=== PATIENT | male | born 1995 ===

== ENCOUNTER 2016-11-15 09:46 | Emergency (ER) | payer OTHER ==
[2016-11-15 10:14] VITALS: PULSE 72; RESP 18; TEMP 98.2; O2SAT 100
[2016-11-15] MEDS ORDERED: Lidocaine 2% w Epi 1:100,000 Inj IJ ONE (10:15)
--- NOTE | 2016-11-15 10:19 | C.PDOC ---
History Of Present Illness 21 y/o male presents to the ED with complains of laceration to left hand. Pt states he was using circular saw to cut wood when the wood got stuck, the saw began slowed down with he tried to fix it and his hand got caught, causing laceration to left dorsum of hand. Pt denies weakness, numbness or any other complaints. Last tetanus 1 year ago. Time Seen by Provider: 11/15/16 10:06 Chief Complaint (Nursing): Abnormal Skin Integrity History Per: Patient History/Exam Limitations: no limitations Onset/Duration Of Symptoms: Hrs Current Symptoms Are (Timing): Still Present Location Of Injury: Left: Hand Severity: Moderate Recent travel outside of the [place]: No Past Medical History Reviewed: Historical Data, Nursing Documentation, Vital Signs Vital Signs: Last Vital Signs Temp 98.2 F 11/15/16 10:03 Pulse 72 11/15/16 10:03 Resp 18 11/15/16 11:04 BP 130/85 11/15/16 11:04 Pulse Ox 100 11/17/16 08:05 Family History: States: Unknown Family Hx - Social History Hx Alcohol Use: No Hx Substance Use: No - Immunization History Hx Tetanus Toxoid Vaccination: Yes (1-2 yrs ago) Hx Influenza Vaccination: No Hx Pneumococcal Vaccination: No Review Of Systems Except As Marked, All Systems Reviewed And Found Negative. Constitutional: Negative for: Fever, Chills Respiratory: Negative for: Cough, Shortness of Breath Musculoskeletal: Positive for: Other (laceration to left hand) Neurological: Negative for: Weakness, Numbness Physical Exam - Physical Exam Appears: Non-toxic, No Acute Distress Skin: Warm, Dry Head: Atraumatic, Normacephalic Extremity: Capillary Refill (<2 seconds), Other (left hand 3 cm laceration to dorsal aspect) Extremity: Bilateral: Atraumatic Neurological/Psych: Oriented x3, Normal Motor, Normal Sensation ED Course And Treatment O2 Sat by Pulse Oximetry: 100 (room air) Pulse Ox Interpretation: Normal Laceration - Laceration Repair No standard instances Wound Length (In cm): 3cm Description Of Wound: Linear Anesthesia: Lidocaine 1%, With Epi Wound Examination: Irrigated With Saline, No FB With Wound Exploration Wound Closure: Suture Suture Technique And Material Used: Nylon (3-0) Wound Complexity: Simple Disposition Counseled Patient/Family Regarding: Diagnosis, Need For Followup - Disposition Disposition: HOME/ ROUTINE Disposition Time: 10:50 Condition: STABLE Additional Instructions: Mantenga la sandra afectada limpia y seca salma los prximos 2 lopez. Despus de eso, lvese la mano con agua y jabn. Usted puede usar ungento de Bacitracina y greer ayuda de aguilar. Siga con billingsley mdico, o regrese a la judie de emergencias en 10 lopez para quitar las suturas. Volver inmediatamente si hay enrojecimiento o cualquier indicacin de infeccin. Instructions: Laceration (ED) Forms: Work Excuse - POA Present On Arrival: None - Clinical Impression Clinical Impression: Laceration of left hand - Scribe Statement The provider has reviewed the documentation as recorded by the Scribe Blaine Balderas Provider Attestation: All medical record entries made by the Scribe were at my direction and personally dictated by me. I have reviewed the chart and agree that the record accurately reflects my personal performance of the history, physical exam, medical decision making, and the department course for this patient. I have also personally directed, reviewed, and agree with the discharge instructions and disposition.
[2016-11-15] MEDS ORDERED: Lidocaine 1%/Epinephrine 1:100000 30 ml vial IJ ONE (10:40)
[2016-11-15 11:06] VITALS: BP 130/85
== END 2016-11-15 11:05 | disposition home or self-care (01) ==
LOC: C.ER 09:46
DX: S61.412A Laceration without foreign body of left hand, initial encounter (principal); W31.2XXA Contact with powered woodworking and forming machines, initial encounter; Y93.89 Activity, other specified; Y92.89 Other specified places as the place of occurrence of the external cause